=== PATIENT | female | born 1965 | race Caucasian/White ===

== ENCOUNTER 2022-04-12 18:31 | Outpatient (CLI) | payer OTHER, SELFPAY ==
--- NOTE | 2022-04-12 19:00 | CRLHL7_ITS ---
For Patients: As a result of the Century Cures Act, medical imaging exams and procedure reports are released immediately into your electronic medical record. You may view this report before your referring provider. If you have questions, please contact your health care provider. BILATERAL DIGITAL SCREENING MAMMOGRAM WITH COMPUTER-AIDED DETECTION CLINICAL HISTORY: Routine screening exam. COMPARISON: 07/24/2012, 07/12/2011, 07/05/2011, 07/12/2010. TECHNIQUE: Digital mammogram in CC and MLO projections including computer-aided detection (CAD). BREAST COMPOSITION: There are areas of scattered fibroglandular density. FINDINGS: RIGHT Breast: No suspicious findings. LEFT Breast: Nodular density within the upper outer quadrant LEFT breast 1 o`clock 5 cm from the nipple, probable cyst or fibroadenoma. IMPRESSION: LEFT breast asymmetry/mass. RECOMMENDATIONS: Additional mammographic views of the LEFT breast including 3D spot compression CC/MLO. LEFT breast ultrasound may also be required. BI-RADS Category 0: Incomplete: Need Additional Imaging Evaluation and/or Prior Mammograms for Comparison [facility] will contact the patient for follow-up. A lay language report of this examination will be provided to the patient. Dictated by Josemanuel Wayne MD @ 04/20/2022 1:20:18 PM jj/Dictated by: Josemanuel Wayne MD @ 04/20/2022 1:20:00 PM (Electronically Signed)
== END 2022-04-12 18:32 | disposition home or self-care (01) ==
LOC: MAMMO 18:34
PROVIDERS: Visit Provider Obstetrics & Gynecology
DX: Z12.31 Encounter for screening mammogram for malignant neoplasm of breast (principal); N63.20 Unspecified lump in the left breast, unspecified quadrant
CPT/HCPCS: 77063; 77067

== ENCOUNTER 2022-04-25 09:11 | Outpatient (CLI) | payer OTHER, SELFPAY ==
[2022-04-25 11:21] LABS: Cholesterol* 206 mg/dL (90-199); Glucose* 103 mg/dL (60-115); HDL Cholesterol* 49 mg/dL (>=50); LDL Cholesterol Calculated 131 mg/dL (<100); Triglycerides* 129 mg/dL (40-149)
== END 2022-04-25 09:12 | disposition home or self-care (01) ==
PROVIDERS: Visit Provider Obstetrics & Gynecology
DX: Z13.1 Encounter for screening for diabetes mellitus (principal); Z13.6 Encounter for screening for cardiovascular disorders
CPT/HCPCS: 80061; 82947

== ENCOUNTER 2022-05-05 08:26 | Outpatient (CLI) | payer OTHER, SELFPAY ==
--- NOTE | 2022-05-05 08:45 | CRLHL7_ITS ---
For Patients: As a result of the Cures Act, medical imaging exams and procedure reports are released immediately into your electronic medical record. You may view this report before your referring provider. If you have questions, please contact your health care provider. DIGITAL DIAGNOSTIC LEFT MAMMOGRAM USING TOMOSYNTHESIS AND COMPUTER-AIDED DETECTION LEFT BREAST ULTRASOUND CLINICAL HISTORY: LEFT breast mass/asymmetry. COMPARISON: 04/12/2022. TECHNIQUE: Digital LEFT mammogram in two projections. Tomosynthesis and CAD utilized. Real-time ultrasound imaging of LEFT breast with imaging documentation. BREAST COMPOSITION: There are areas of scattered fibroglandular density. FINDINGS: 3D spot compression CC/MLO LEFT breast mammogram images submitted. Persistent asymmetric density with ill-defined margins within the upper outer quadrant of the LEFT breast. No architectural distortion. No suspicious calcifications. Targeted LEFT breast ultrasound performed in the upper outer quadrant. At 1 o`clock 5 cm from the nipple there is an ill-defined masslike area with heterogeneously hypoechoic internal echotexture at mid depth measuring 1.8 x 0.7 x 1.7 cm. Mild distal shadowing noted. IMPRESSION: Indeterminate lesion LEFT breast 1 o`clock 5 cm from the nipple measuring 1.8 cm. RECOMMENDATIONS: Ultrasound-guided core needle biopsy. Results and recommendations discussed with the patient. BI-RADS Category 4: Suspicious A lay language report of this examination will be provided to the patient. Dictated by Josemanuel Wayne MD @ 05/05/2022 9:50:35 AM jj/Dictated by: Josemanuel Wayne MD @ 05/05/2022 9:50:00 AM (Electronically Signed)
--- NOTE | 2022-05-05 09:15 | CRLHL7_ITS ---
For Patients: As a result of the Cures Act, medical imaging exams and procedure reports are released immediately into your electronic medical record. You may view this report before your referring provider. If you have questions, please contact your health care provider. PLEASE SEE DIGITAL DIAGNOSTIC LEFT MAMMOGRAM PERFORMED SAME DAY CRL:anais manzo/Dictated by: Josemanuel Wayne MD @ 05/05/2022 9:50:00 AM (Electronically Signed)
== END 2022-05-05 08:27 | disposition home or self-care (01) ==
LOC: MAMMO 08:27
PROVIDERS: Visit Provider Obstetrics & Gynecology
DX: N63.20 Unspecified lump in the left breast, unspecified quadrant (principal); R92.8 Other abnormal and inconclusive findings on diagnostic imaging of breast
CPT/HCPCS: 76642; 77065; G0279

== ENCOUNTER 2022-05-20 09:05 | Outpatient (CLI) | payer OTHER, SELFPAY ==
--- NOTE | 2022-05-20 09:15 | CRLHL7_ITS ---
For Patients: As a result of the Century Cures Act, medical imaging exams and procedure reports are released immediately into your electronic medical record. You may view this report before your referring provider. If you have questions, please contact your health care provider. ULTRASOUND-GUIDED LEFT BREAST BIOPSY WITH CLIP PLACEMENT INDICATION: Indeterminate lesion LEFT breast 1 o`clock position 5 cm from the nipple measuring up to 1.8 cm. Ultrasound-guided biopsy for further evaluation. FINDINGS: Informed consent was obtained. Benefits and risks were discussed. The patient agreed to proceed. [place] protocol was followed. TIME-OUT conducted just prior to starting procedure confirmed patient identity, site/side, procedure, patient position, and availability of correct equipment. Pause for cause was performed. Utilizing sterile technique and 1 percent lidocaine for local anesthetic, a 14-gauge Bard biopsy gun was utilized. Five passes were made into the lesion in question. Five samples were obtained. Subsequently, a small postprocedure biopsy clip was placed. No immediate complications. IMPRESSION: Technically successful ultrasound-guided LEFT breast biopsy. A biopsy clip was placed. The final pathology is pending. A postprocedure mammogram will be performed. ACR not applicable Dictated by: Collin Reddy MD @05/20/2022 10:32:29 AM jj/Dictated by: Collin Reddy MD @ 05/20/2022 10:32:00 AM ADDENDUM: Pathology consistent with fibrous breast tissue and pseudoangiomatous stromal hyperplasia. Negative for atypia and malignancy. This is concordant. Routine screening mammography recommended. Dictated by:?Josemanuel Wayne MD @02/27/2023 12:04:48 PM (Electronically Signed)
--- NOTE | 2022-05-20 10:00 | CRLHL7_ITS ---
For Patients: As a result of the Cures Act, medical imaging exams and procedure reports are released immediately into your electronic medical record. You may view this report before your referring provider. If you have questions, please contact your health care provider. POST-BIOPSY DIGITAL MAMMOGRAM FOR CLIP PLACEMENT INDICATION: 56-year-old female. Status post ultrasound-guided LEFT upper outer quadrant breast biopsy. Follow-up clip placement. TECHNIQUE: CC and true ML view of the LEFT breast were obtained. FINDINGS: There is a biopsy clip in the upper outer LEFT breast 1 o`clock position 5 cm from nipple within a previously described lesion on the diagnostic mammogram 05/05/2022. ACR not applicable Dictated by: Collin Reddy MD @05/20/2022 10:33:26 AM jj/Dictated by: Collin Reddy MD @ 05/20/2022 10:33:00 AM (Electronically Signed)
== END 2022-05-20 09:06 | disposition home or self-care (01) ==
LOC: US 09:05
PROVIDERS: Visit Provider Obstetrics & Gynecology
DX: N63.21 Unspecified lump in the left breast, upper outer quadrant (principal)
CPT/HCPCS: 19083; 77065; 88305; A4648; A4649

== ENCOUNTER 2024-05-10 09:29 | Outpatient (CLI) | payer OTHER, SELFPAY | END 2024-05-10 09:30 | disposition home or self-care (01) | PROVIDERS: PCP Nurse Practitioner Family; Visit Provider Nurse Practitioner Family | DX: R42 Dizziness and giddiness (principal); E03.9 Hypothyroidism, unspecified | CPT/HCPCS: 80053; 84439; 84443; 84484; 85025 ==

== ENCOUNTER 2024-09-05 12:47 | Outpatient (CLI) | payer OTHER, SELFPAY ==
--- OUTSIDE RECORDS SUMMARY | 2024-09-06 00:37 | XMS_ITS | Encounter Summary ---
Author Organization [facility] er Address [address] [place] [address] Care Team Providers Care Cod Clerk Name Role Phone María Gill APRN, CNP Primary Care Provider [phone]- [phone] Encounter Details Date Type Department Care Team (Late st Contact Info) Description 02/03/2023 Telephone [place] [address] [place] [address] Juanita Nolan MD Social History Tobacco Use Types Packs/Day Years Used Date Smoking Tobacco: Former Smokeless Tobacco: Never Alcohol Use Standard Drinks/Week Comments Yes 10 (1 standard drink = 0.6 oz pu re alcohol) social PHQ-2 Answer Date Recorded PHQ-9 Total Score 0 10/28/2022 Comments Unknown Sex and Gender Information Value Date Recorded Sex Assigned at Not on file Legal Sex Female 7:57 PM CDT Gender Identity Not on file Sexual Orientation Not on file documented as of this encounter Plan of Treatment Not on file documented as of this encounter Visit Diagnoses Not on filedocumented in this encounter Care Teams Cod Clerk Relationship Specialty Start Date End Date María Gill APRN, CNP [address] [place] [address] PCP - General Family Medicine 05/09/23 documented as of this encounter
--- OUTSIDE RECORDS SUMMARY | 2024-09-06 00:37 | XMS_ITS | Encounter Summary ---
Author Organization [facility] er Address [address] [place] [address] Care Team Providers Care Town Planner Name Role Phone GenaroSwati haleyelissa Butler APRN, WAREHOUSE WORKER 2ND SHIFT Primary Care Provider [phone]- [phone] Reason for Visit * Reason Comments Med Refill Encounter Details Date Type Department Care Team (Late st Contact Info) Description 12/27/2017 Refill [facility] [address] [place] [address] Jacquie Keller MD [address] [place] [id number] Hypothyroidism due to acquired atrophy of thyroid (Primary Dx) Social History Tobacco Use Types Packs/Day Years Used Date Smoking Tobacco: Never Assessed Comments Unknown Sex and Gender Information Value Date Recorded Sex Assigned at Not on file Legal Sex Female 7:57 PM CDT Gender Identity Not on file Sexual Orientation Not on file documented as of this encounter Miscellaneous Notes * Telephone Encounter - Genet Edwards MA - 01/01/2018 4:02 PM CDT Please complete TSH for patient to have done prior to f/u appt. * Telephone Encounter - Kendy Rodriguez - 01/01/2018 3:[address] lab order in for patient to complete prior to appointment. * Telephone Encounter - Kendy Rodriguez - 01/01/2018 3:43 PM CDT Patient is scheduled to see Dr. Keller on 01/11/18. Patient verbalized an understanding to complete TSH blood draw prior to appointment. * Telephone Encounter - Jacquie Keller MD - 01/01/2018 1:49 PM CDT Prescription sent for 90-day supply with no refills. Please contact patient to schedule follow-up with TSH prior. * Telephone Encounter - Genet Edwards MA - 01/01/2018 10:22 AM CDT Patient was supposed to have a TSH rechecked in September which was never completed. Patient has no f/u appt scheduled at this time. Please advise on how to proceed. * Telephone Encounter - Peyton Peterson LPN - 01/01/2018 10:06 AM CDT Last Rx Synthroid (levothyroxine) 150 mcg (0.15 mg) tablet, oral, 1 tablet(s), Daily Last Prescribed: 06/24/2017 Prescriber: Jacquie Keller [facility]: [facility] Quantity: 100 Refills: 1 Notes: (Replaces 137 mcg) Chronic: Y Last TSH 06/13/2017 0.13 mlU/L Last appt for medication 05/25/2017 No upcoming appt noted documented in this encounter Plan of Treatment Not on file documented as of this encounter Results * (ABNORMAL) TSH (02/16/2018 8:09 AM POLICY ADVISOR) TSH, Sensitive 0.30(L) 0.46 - 4.68 mIU/L 02/16/2018 2:46 PM POLICY ADVISOR [facility] Comment: The results from this or any other diagnostic test should be used and interpreted only in the context of the overall clinical picture. Biotin levels in serum remain elevated for up to 24 hours after oral or intravenous biotin administration and may interfere with this assay to produce unreliable results. Heterophilic antibodies in serum or plasma samples may cause interference in immunoassays. Exposure to animal antigens, either in the environment or as part of treatment or imaging procedures, may have circulating anti-animal antibodies present. These antibodies may interfere with the assay reagents to produce unreliable results. Results which are inconsistent with clinical observations indicate the need for additional testing. Blood 02/16/2018 8:09 AM POLICY ADVISOR 02/16/2018 12:47 PM POLICY ADVISOR us Jacquie Keller MD LAB BLOOD ORDERABLES Final Result [facility] [address] [place] [id number] documented in this encounter Visit Diagnoses Diagnosis Hypothyroidism due to acquired atrophy of thyroid- Primary documented in this encounter Care Teams Town Planner Relationship Specialty Start Date End Date María Gill APRN, AR[place] [address] [place] [address] PCP - General Family Medicine 05/09/23 documented as of this encounter
--- OUTSIDE RECORDS SUMMARY | 2024-09-06 00:37 | XMS_ITS | Clinical Summary ---
Author Organization [facility] er Address [address] [place] [address] Care Team Providers Care Calculation Reviewer Name Role Phone Jairo María Butler APRN, NITRIC ACID PLANT OPERATOR Primary Care Provider [phone]- [phone] Allergies Active Allergy Reactions Criticality Noted Date Comments Seasonal 05/09/2023 Medications levothyroxine (SYNTHROID) 150 MCG tabletIndication s:Hypothyroidism due to acquired atrophy of thyroid TAKE ONE TABLET BY MOUTH EVERY DAY FOR 6 DAYS OF THE WEEK AND SKIP THE 7TH 78 tablet 3 4 Active UNABLE TO FIND 1 (one) time each day Med Name: OTC Allergy medication, unsure of name Active albuterol HFA (Ventolin HFA) 108 (90 Base) MCG/ACT inhalerIndicatio ns:Mild asthma with exacerbation, unspecified whether persistent,Bronc hitis Inhale 2 puffs every 4 (four) hours if needed for wheezing 18 g 4 Active Active Problems Problem Noted Date Diagnosed Date Immunization declined 05/09/2023 Overview (05/09/2023): Tetanus-rxn sore arm/fever/achy. Flu-sick Mammogram declined 05/09/2023 Seasonal allergies 05/09/2023 Obesity (BMI 30.0-34.9) 03/18/2021 Hypothyroidism due to acquired atrophy of thyroi d 06/26/2018 Overview (12/25/2018): Last endocrine visit in 12/2018. Stable. Recommended to transition thyroid care to primary care provider with annual monitoring. Can return back to endocrine with any questions or concerns that arise. Hypovitaminosis D 06/26/2018 Overview (12/25/2018): On vitamin D3 50,000 units once a month for long-term maintenance. On supplementation vitamin D from 06/2018 was optimal at 35.5. Immunizations Immunization Administration Dates Next Due Influenza, Split Virus, Trivalent, Preservative 12/29/2015 Td 03/20/1999 Tdap 07/18/2012 Family History Medical History Relation Comments Retinal detachment Brother 1 Retinal detachment Brother 2 Hip dysplasia Daughter congenital Hypertension Father Intestinal polyp Father Thrombosis Maternal Grandmother Fibrocystic breast disease Mother Lymphoma Mother Retinal detachment Mother Hypothyroidism Mother's Sister Relation Status Comments Brother 1 Alive Brother 2 Alive Daughter Alive Father Maternal Grandmother Mother Alive Mother's Sister Son Alive Social History Tobacco Use Types Packs/Day Years Used Date Smoking Tobacco: Former Cigarettes Q uit: 1983 Passive Smoke Exposure: Never Smokeless Tobacco: Never Tobacco Cessation:Counseling Given: Not Answered Comments:Social-bars, 2~yrs. Alcohol Use Standard Drinks/Week Comments Yes 1 (1 standard drink = 0.6 oz pur e alcohol) social Humiliation, Afraid, Rape, and Kick questionnair e Answer Date Recorded Within the last year, have y ou been afraid of your partner or ex-partner? No 05/09/2023 Within the last year, have y ou been humiliated or emotionally abused in other ways by your partner or ex-partner? No Within the last year, have y ou been kicked, hit, slapped, or otherwise physically hurt by your partner or ex-partner? No 05/09/2023 Within the last year, have y ou been raped or forced to have any kind of sexual activity by your partner or ex-partner? No 05/09/2023 Social Connection and Isolation Panel [NHANES] A nswer Date Recorded In a typical week, how many times do you talk on the phone with family, friends, or neighbors? Twice a week 05/09/19 24 How often do you get togethe r with friends or relatives? Once a week 05/09/2023 How often do you attend [facility] or moravian services? 1 to 4 times per year 05/09/2023 Do you belong to any clubs o r organizations such as faith groups, unions, fraternal or athletic groups, or school groups? No 05/09/2023 How often do you attend meet ings of the clubs or organizations you belong to? Never 05/09/2023 Are you , , di vorced, , never , or living with a partner? 05/09/2023 AUDIT-C Answer Date Recorded Q1: How often do you have a drink containing alc ohol? 2-4 times a month 05/09/2023 Q2: How many drinks containi ng alcohol do you have on a typical day when you are drinking? 1 or 2 05/09/2023 Q3: How often do you have si x or more drinks on one occasion? Less than monthly 05/09/2023 Overall Financial Resource Strain (CARDIA) Answe r Date Recorded How hard is it for you to pa y for the very basics like food, housing, medical care, and heating? Not hard at all 05/09/2023 PHQ-2 Answer Date Recorded PHQ-9 Total Score 0 05/09/2023 [facility] - Occupational Stress Questionnaire Answer Date Recorded Do you feel stress - tense, restless, nervous, or anxious, or unable to sleep at night because your mind is troubled all the time - these days? Only a little 05/09/2023 Exercise Vital Sign Answer Date Recorde d On average, how many days pe r week do you engage in moderate to strenuous exercise (like a brisk walk)? 1 day 05/09/2023 On average, how many minutes do you engage in exercise at this level? 10 min 05/09/2023 Hunger Vital Sign Answer Date Recorded Within the past 12 months, y ou worried that your food would run out before you got the money to buy more. Never true 05/09/19 24 Within the past 12 months, t he food you bought just didn't last and you didn't have money to get more. Never true 05/09/2023 PRAPARE - Transportation Answer Date Re corded In the past 12 months, has l ack of transportation kept you from medical appointments or from getting medications? No 04/21 In the past 12 months, has l ack of transportation kept you from meetings, work, or from getting things needed for daily living? No 05/09/2023 Housing Stability Vital Sign Answer Jimmy e Recorded In the last 12 months, was t here a time when you were not able to pay the mortgage or rent on time? No 05/09/2023 In the last 12 months, how many places have you lived? 1 05/09/2023 In the last 12 months, was t here a time when you did not have a steady place to sleep or slept in a halfway (including now)? No 05/09/2023 Education Answer Date Recorded What is the highest level of school you have completed or the highest degree you have received? Associate degree: occupational, technical, or vocational program 05/09/2023 Comments No Sex and Gender Information Value Date Recorded Sex Assigned at Not on file Legal Sex Female 7:57 PM CDT Gender Identity Not on file Sexual Orientation Not on file Last Filed Vital Signs Vital Sign Reading Time Taken Comments Blood Pressure 130/82 05/09/2023 9:51 AM MACHINE CLERICAL VERIFIER Pulse 76 05/29/2023 4:02 PM CDT Temperature 36.8 C (98.3 F) 05/29/2023 4:02 PM CDT Respiratory Rate 16 05/29/2023 4:02 PM CDT Oxygen Saturation 95% 05/29/2023 4:02 PM CDT Inhaled Oxygen Concentration - - Weight 89.3 kg (196 lb 14.4 oz) 05/29/2023 4:02 PM CDT Height 168.4 cm (5' 6.3) 05/09/2023 9:51 AM MACHINE CLERICAL VERIFIER Body Mass Index 31.49 05/09/2023 9:51 AM MACHINE CLERICAL VERIFIER Plan of Treatment Health Maintenance Due Date Last Done Comments CT Colonography 1965 Colonoscopy 1965 Colorectal Cancer Screening 1965 FIT-DNA 1965 Sigmoidoscopy 1965 iFOBT 1965 Pneumococcal Vaccine: 50+ Years (1 of 1 - PCV) 10/06/2013 Zoster Vaccines (1 of 2) 10/06/2013 DTaP,Tdap,and Td Vaccines (2 - Td or Tdap) 07/18/2022 07/18/2012, 03/20/1999 Pap Smear 10/27/2023 10/26/2018, 05/30/2013 Mammogram 04/12/2024 04/12/2022 Influenza Vaccine Discontinued 12/29/2015 COVID-19 Vaccine Discontinued HPV Vaccines Aged Out No longer eligi ble based on patient's age to complete this topic Procedures Procedure Name Priority Date/Time Associated Diagnosis Comments PAP TEST Routine 10/26/2018 2:48 PM CDT Screening for cervical cancer from Last 3 Months or Most Recently Relevant to Health Maintenance Results * Pap Smear (10/26/2018 2:48 PM CDT) Sure Path PAP, screen 10/26/2018 2:48 PM CDT 10/29/2018 9:40 AM CDT [facility] - 11/05/2018 9:23 AM CDT [facility] [address] [place] [address] Patient: GABE KINNEY Procedure: 10/26/2018 14:48 /Age/Sex: 1965, 53 Y, F Received: 10/29/2018 09:40 [place] Patient Location: [facility] Ordered by: KELLEE BONILLA APRN, CNP Attending: KELLEE BONILLA APRN, CNP [facility] FINAL REPORT SPECIMEN: (A) SURE PATH PAP, SCREEN SPECIMEN DESCRIPTION: Cervical Received cloudy specimen in SurePath vial. CLINICAL INFORMATION: LMP: 10/02/2018 Prev.normal: 2013 SPECIMEN ADEQUACY: Satisfactory for Evaluation. Endocervical cells/transformation zone component present. GENERAL CATEGORIZATION: Negative for Intraepithelial Lesion or Malignancy INTERPRETATION/RESULTS: Fungal organisms morphologically consistent with Sonia species. PAP Test Disclaimer Cervical cytology is a screening test primarily for squamous cancer and its precursors and has associated false-negative and false-positive results. Regular sampling and follow-up of unexplained clinical signs and symptoms are recommended to minimize the impact of false negative and false positive results. Screened By: Signed By: HEMANTH MEDEL(ASCP) <Sign Out Signature> Reported: 11/05/2018 Page 1 of 1 us Kellee M Bonilla REGISTERED HEALTH NURSE, NITRIC ACID PLANT OPERATOR LAB CYTOLOGY ORDERA BLES Final Result [facility] [address] [place] [address] from Last 3 Months or Most Recently Relevant to Health Maintenance Insurance [id number] [place] [id number] [facility] [place] [id number] Care Teams Calculation Reviewer Relationship Specialty Start Date End Date María Gill APRN, NITRIC ACID PLANT OPERATOR [address] [place] [address] PCP - General Family Medicine 05/09/23
== END 2024-09-05 12:48 | disposition home or self-care (01) ==
PROVIDERS: PCP Nurse Practitioner Family; Visit Provider Nurse Practitioner Family
DX: E03.9 Hypothyroidism, unspecified (principal); Z13.1 Encounter for screening for diabetes mellitus
CPT/HCPCS: 82947; 84439; 84443